=== PATIENT | male | born 1960 | race Caucasian/White ===

== ENCOUNTER 2016-09-09 09:13 | Emergency (ER) | payer OTHER ==
[2016-09-09 09:53] LABS: BASOPHIL 0.4 % (0-2); EOSINOPHIL 0.2 % (0-5); HCT 41.3 % (42.0-52.0); HGB 14.4 g/dl (13.2-18.0); LYMPHOCYTE 10.1 % (15-48); MCH 32.8 pg (25.0-31.0); MCHC 34.9 g/dL (32.0-36.0); MCV 94.1 fL (78.0-100.0); MONOCYTE 9.7 % (0-12); MPV 9.6 fL (6.0-9.5); NEUTROPHIL 79.6 % (41-80); PLT 263 K/uL (150-400); RBC 4.39 M/uL (4.70-6.00); RDW 14.4 % (11.5-14.0); WBC 8.3 K/uL (4.0-10.5)
[2016-09-09 10:04] LABS: BILIRUBIN - TOTAL 0.5 mg/dL (0.1-1.0); CREATININE 0.8 mg/dL (0.7-1.2); GLOBULIN (CALCULATION) 2.8 g/dL (2.2-4.2); POTASSIUM 4.4 mmol/L (3.5-5.1); TOTAL PROTEIN 7.8 g/dL (6.4-8.3)
== END 2016-09-09 12:57 | disposition home or self-care (01) ==
LOC: FER 09:13
PROVIDERS: Emergency Medicine
DX: R56.9 Unspecified convulsions (principal); S01.01XA Laceration without foreign body of scalp, initial encounter; I10 Essential (primary) hypertension; K21.9 Gastro-esophageal reflux disease without esophagitis; F17.200 Nicotine dependence, unspecified, uncomplicated; W19.XXXA Unspecified fall, initial encounter; Y92.69 Other specified industrial and construction area as the place of occurrence of the external cause; Y99.0 Civilian activity done for income or pay
CPT/HCPCS: 36415; 70450; 71010; 72125; 80053; 84484; 85025; 93005; J1885; J2060; J3411; J3475